=== PATIENT | male | born 1990 | race Asian ===

== ENCOUNTER 2023-11-25 13:55 | Emergency (ER) | payer MEDICAID ==
[~2023-11-25] VITALS: Ht 172.7 cm; Wt 81.6 kg
[2023-11-25 14:34] VITALS: BP_SYST 138; PULSE 79; RESP 18; TEMP 97.5; O2SAT 98
[2023-11-25] MEDS: DIPHTH,PERTUSS(ACELL),TET VAC 0.5 ML VIAL (Tdap) I.M. ONE (15:48)
[2023-11-25] MEDS ORDERED: ACET-2634 PO (15:58)
[2023-11-25 16:05] VITALS: BP_SYST 128; PULSE 68; RESP 17; TEMP 97.2; O2SAT 99
== END 2023-11-25 16:06 | disposition home or self-care (01) ==
LOC: SED 13:55
DX: S61.213A Laceration without foreign body of left middle finger without damage to nail, initial encounter (principal); Z79.899 Other long term (current) drug therapy; W26.0XXA Contact with knife, initial encounter; Y93.89 Activity, other specified; Y92.89 Other specified places as the place of occurrence of the external cause; Y99.8 Other external cause status
CPT/HCPCS: 90715; 99283

== ENCOUNTER 2023-12-08 10:04 | Emergency (ER) | payer MEDICAID ==
[~2023-12-08] VITALS: Ht 172.7 cm; Wt 86.2 kg
[~2023-12-08 10:04] MED LIST: ACET-2634 PO
[2023-12-08 10:08] VITALS: BP_SYST 150; PULSE 68; RESP 16; TEMP 97.9; O2SAT 98
[2023-12-08 10:28] VITALS: BP_SYST 150; PULSE 68; RESP 16; TEMP 97.9; O2SAT 98
== END 2023-12-08 10:31 | disposition home or self-care (01) ==
LOC: SED 10:04
DX: Z48.00 Encounter for change or removal of nonsurgical wound dressing (principal); Z48.02 Encounter for removal of sutures; Z79.899 Other long term (current) drug therapy
CPT/HCPCS: 99281